=== PATIENT | male | born 1995 | race Caucasian/White ===

== ENCOUNTER 2024-03-13 14:21 | Emergency (ER) | payer MEDICAID ==
[~2024-03-13] VITALS: Ht 180.3 cm; Wt 82.0 kg
[~2024-03-13 14:21] MED LIST: TEGRETOL PO
[2024-03-13 14:35] VITALS: BP 129/73; PULSE 117; RESP 15; TEMP 98.4; O2SAT 97
[2024-03-13] MEDS: IBUPROFEN 400MG TABLET PO ONE (15:30)
[2024-03-13] MEDS: ONDANSETRON HCL 4MG TABLET PO ONE (16:32)
[2024-03-13] MEDS ORDERED: ONDA4TAB50 MT (17:17)
== END 2024-03-13 17:56 | disposition home or self-care (01) ==
LOC: ER 15:58
DX: J11.1 Influenza due to unidentified influenza virus with other respiratory manifestations (principal); R56.9 Unspecified convulsions
CPT/HCPCS: 99283; Q0162